=== PATIENT | female | born 2000 | race Caucasian/White ===

== ENCOUNTER 2021-09-17 10:41 | Inpatient (IN) | payer OTHER ==
[~2021-09-17] VITALS: Ht 162.6 cm; Wt 46.3 kg
[2021-09-17] MEDS ORDERED: BUSP5TA PO (10:49)
[2021-09-17 11:56] LABS: HEMATOCRIT 38.5 % (36.0-47.0); MEAN CORPUSCULAR HEMOGLOBIN 31.2 pg (27.0-33.0); MEAN CORPUSCULAR HGB CONC 33.8 g/dl (32.0-36.5); MEAN CORPUSCULAR VOLUME 92.3 fl (80.0-96.0); PLATELET COUNT, AUTOMATED 221 10^3/uL (150-450); RED BLOOD COUNT 4.17 10^6/uL (4.00-5.40); WHITE BLOOD COUNT 6.3 10^3/uL (4.0-10.0)
[2021-09-17 12:29] LABS: AMPHETAMINES LEVEL URINE NEGATIVE (NEGATIVE); BARBITURATES URINE NEGATIVE (NEGATIVE); BENZODIAZEPINES URINE NEGATIVE (NEGATIVE); CANNABINOIDS URINE NEGATIVE (NEGATIVE); COCAINE METABOLITE URINE NEGATIVE (NEGATIVE); METHADONE URINE NEGATIVE (NEGATIVE); OPIATES URINE NEGATIVE (NEGATIVE); PHENCYCLIDINE URINE NEGATIVE (NEGATIVE)
[2021-09-17 12:37] LABS: RSV AMPLIFICATION NEGATIVE (NEGATIVE)
[2021-09-17 12:44] LABS: HCG, SERUM QUALITATIVE NEGATIVE (NEGATIVE)
[2021-09-17 12:52] LABS: ACETAMINOPHEN LEVEL < 2.0 UG/ML (10.0-30.0); ALT/SGPT 14 U/L (12-78); BILIRUBIN,DIRECT < 0.1 MG/DL (0.0-0.2); BILIRUBIN,TOTAL 0.3 MG/DL (0.2-1.0); BLOOD UREA NITROGEN 10 MG/DL (7-18); CALCIUM LEVEL 8.5 MG/DL (8.5-10.1); CARBON DIOXIDE LEVEL 25 MEQ/L (21-32); CHLORIDE LEVEL 110 MEQ/L (98-107); CREATININE FOR GFR 0.63 MG/DL (0.55-1.30); ETHYL ALCOHOL (ETHANOL) < 0.003 % (0.000-0.010); GLUCOSE, FASTING 96 MG/DL (70-100); POTASSIUM SERUM 4.1 MEQ/L (3.5-5.1); SALICYLATE LEVEL < 1.7 MG/DL (5.0-30.0); SODIUM LEVEL 143 MEQ/L (136-145); THYROID STIMULATING HORMONE 0.713 uIU/ML (0.463-3.98); TOTAL PROTEIN 7.1 GM/DL (6.4-8.2)
[2021-09-17 13:32] LABS: LITHIUM LEVEL < 0.20 MEQ/L (0.60-1.20)
[2021-09-17] MEDS ORDERED: HOME MED LIST COMPLETE! XX SCH (14:55)
[2021-09-17] MEDS ORDERED: ACETAMINOPHEN TAB 650MG DOSE (2X325MG) PO PRN (15:45)
[2021-09-17] MEDS ORDERED: MAALOX 30 ML SUSP *UDC PO PRN (15:45)
[2021-09-17 16:07] VITALS: BP 84/52
[2021-09-18 06:33] VITALS: BP 109/57
[2021-09-18] MEDS: MULTIVITAMINS/MINERALS THERAP 1 TAB PO SCH (09:00)
[2021-09-18 18:19] VITALS: BP 93/54
[2021-09-18] MEDS: MIRTAZAPINE 7.5MG PER 1/2 TABLET PO SCH (21:24)
[2021-09-19 06:16] VITALS: BP 127/58
[2021-09-19] MEDS: MULTIVITAMINS/MINERALS THERAP 1 TAB PO SCH (09:37)
[2021-09-19] MEDS: VENLAFAXINE **XR** 37.5 MG CAPSULE PO SCH (12:59)
[2021-09-19 18:07] VITALS: BP 105/54
[2021-09-19] MEDS: MIRTAZAPINE 7.5MG PER 1/2 TABLET PO SCH (20:56)
[2021-09-20 06:11] VITALS: BP 85/56
[2021-09-20 07:50] VITALS: BP 115/65
[2021-09-20] MEDS: VENLAFAXINE **XR** 37.5 MG CAPSULE PO SCH (08:35)
[2021-09-20] MEDS: MULTIVITAMINS/MINERALS THERAP 1 TAB PO SCH (08:35)
[2021-09-20 18:22] VITALS: BP 113/57
[2021-09-20] MEDS: MIRTAZAPINE 7.5MG PER 1/2 TABLET PO SCH (21:39)
[2021-09-21 07:19] VITALS: BP 95/50
[2021-09-21] MEDS: MULTIVITAMINS/MINERALS THERAP 1 TAB PO SCH (08:31)
[2021-09-21] MEDS: VENLAFAXINE **XR** 37.5 MG CAPSULE PO SCH (08:31)
[2021-09-21 18:47] VITALS: BP 131/85
[2021-09-21] MEDS: MIRTAZAPINE 7.5MG PER 1/2 TABLET PO SCH (20:11)
[2021-09-22 06:24] VITALS: BP 101/59
[2021-09-22] MEDS: VENLAFAXINE **XR** 75MG CAPSULE PO SCH (08:49)
[2021-09-22] MEDS: MULTIVITAMINS/MINERALS THERAP 1 TAB PO SCH (08:49)
[2021-09-22 18:24] VITALS: BP 112/71
[2021-09-22] MEDS: MIRTAZAPINE 7.5MG PER 1/2 TABLET PO SCH (21:43)
[2021-09-23 06:19] VITALS: BP 95/62
[2021-09-23] MEDS: VENLAFAXINE **XR** 75MG CAPSULE PO SCH (08:36)
[2021-09-23] MEDS: MULTIVITAMINS/MINERALS THERAP 1 TAB PO SCH (08:36)
[2021-09-23 16:43] VITALS: BP 132/85
[2021-09-23 16:45] VITALS: BP 107/56
[2021-09-23] MEDS: MIRTAZAPINE 7.5MG PER 1/2 TABLET PO SCH (21:17)
[2021-09-24 06:12] VITALS: BP 137/71
[2021-09-24] MEDS: MULTIVITAMINS/MINERALS THERAP 1 TAB PO SCH (08:12)
[2021-09-24] MEDS: VENLAFAXINE **XR** 75MG CAPSULE PO SCH (08:12)
[2021-09-24 15:56] VITALS: BP 108/62
[2021-09-24] MEDS: MIRTAZAPINE 7.5MG PER 1/2 TABLET PO SCH (20:37)
[2021-09-25 06:07] VITALS: BP 141/68
[2021-09-25] MEDS: DOCUSATE SODIUM 100MG CAPSULE PO SCH ×2 (09:00→20:38)
[2021-09-25] MEDS: VENLAFAXINE **XR** 75MG CAPSULE PO SCH (09:19)
[2021-09-25] MEDS: MULTIVITAMINS/MINERALS THERAP 1 TAB PO SCH (09:19)
[2021-09-25 16:21] VITALS: BP 107/72
[2021-09-25] MEDS: MIRTAZAPINE 7.5MG PER 1/2 TABLET PO SCH (20:38)
[2021-09-25] MEDS: PRAZOSIN 1 MG CAP PO SCH (20:38)
[2021-09-26 06:36] VITALS: BP 128/59
[2021-09-26] MEDS: MULTIVITAMINS/MINERALS THERAP 1 TAB PO SCH (09:38)
[2021-09-26] MEDS: DOCUSATE SODIUM 100MG CAPSULE PO SCH ×2 (09:38→20:45)
[2021-09-26] MEDS: VENLAFAXINE **XR** 75MG CAPSULE PO SCH (09:38)
[2021-09-26] MEDS: busPIRone 10 MG TAB PO SCH ×2 (12:58→20:45)
[2021-09-26 19:13] VITALS: BP 122/79
[2021-09-26] MEDS: MIRTAZAPINE 7.5MG PER 1/2 TABLET PO SCH (20:45)
[2021-09-26] MEDS: PRAZOSIN 1 MG CAP PO SCH (20:45)
[2021-09-27 06:15] VITALS: BP 101/56
[2021-09-27] MEDS: MULTIVITAMINS/MINERALS THERAP 1 TAB PO SCH (08:47)
[2021-09-27] MEDS: DOCUSATE SODIUM 100MG CAPSULE PO SCH ×2 (08:47→21:00)
[2021-09-27] MEDS: busPIRone 10 MG TAB PO SCH ×3 (08:47→21:18)
[2021-09-27] MEDS: VENLAFAXINE **XR** 75MG CAPSULE PO SCH (08:47)
[2021-09-27 10:31] LABS: ALBUMIN 4.1 GM/DL (3.2-5.2); ALT/SGPT 21 U/L (12-78); BILIRUBIN,TOTAL 0.4 MG/DL (0.2-1.0); BLOOD UREA NITROGEN 15 MG/DL (7-18); CALCIUM LEVEL 9.8 MG/DL (8.5-10.1); CARBON DIOXIDE LEVEL 31 MEQ/L (21-32); CHLORIDE LEVEL 106 MEQ/L (98-107); CREATININE FOR GFR 0.78 MG/DL (0.55-1.30); GLUCOSE, FASTING 70 MG/DL (70-100); POTASSIUM SERUM 3.7 MEQ/L (3.5-5.1); SODIUM LEVEL 143 MEQ/L (136-145); TOTAL PROTEIN 7.3 GM/DL (6.4-8.2)
[2021-09-27] MEDS ORDERED: TUBERCULIN PPD 5 UNITS/0.1 ML ID ONE (12:00)
[2021-09-27] MEDS: MOM 30ML SUSPENSION UDC PO PRN (13:22)
[2021-09-27 17:44] VITALS: BP 100/61
[2021-09-27] MEDS: MIRTAZAPINE 15 MG TAB PO SCH (21:18)
[2021-09-28 06:09] VITALS: BP 101/55
[2021-09-28] MEDS: VENLAFAXINE **XR** 37.5 MG CAPSULE PO SCH (08:53)
[2021-09-28] MEDS: busPIRone 10 MG TAB PO SCH ×3 (08:54→20:48)
[2021-09-28] MEDS: MULTIVITAMINS/MINERALS THERAP 1 TAB PO SCH (08:54)
[2021-09-28] MEDS: DOCUSATE SODIUM 100MG CAPSULE PO SCH ×2 (08:56→20:47)
[2021-09-28 10:58] LABS: CHOLESTEROL RISK RATIO 2.253 (<5)
[2021-09-28 16:22] VITALS: BP 117/70
[2021-09-28] MEDS: MIRTAZAPINE 15 MG TAB PO SCH (20:48)
[2021-09-29 06:38] VITALS: BP 107/61
[2021-09-29] MEDS: DOCUSATE SODIUM 100MG CAPSULE PO SCH ×2 (08:25→20:34)
[2021-09-29] MEDS: VENLAFAXINE **XR** 37.5 MG CAPSULE PO SCH (08:27)
[2021-09-29] MEDS: MULTIVITAMINS/MINERALS THERAP 1 TAB PO SCH (08:27)
[2021-09-29] MEDS: busPIRone 10 MG TAB PO SCH ×3 (08:27→20:34)
[2021-09-29] MEDS ORDERED: PPD DOCUMENTATION ENTRY MISC XX ONE (12:00)
[2021-09-29 16:11] VITALS: BP 106/60
[2021-09-29] MEDS: MIRTAZAPINE 15 MG TAB PO SCH (20:34)
[2021-09-30 07:03] VITALS: BP 102/61
[2021-09-30] MEDS: VENLAFAXINE **XR** 37.5 MG CAPSULE PO SCH (08:24)
[2021-09-30] MEDS: MULTIVITAMINS/MINERALS THERAP 1 TAB PO SCH (08:24)
[2021-09-30] MEDS: busPIRone 10 MG TAB PO SCH ×3 (08:24→21:20)
[2021-09-30] MEDS: DOCUSATE SODIUM 100MG CAPSULE PO SCH ×2 (08:24→21:00)
[2021-09-30 18:20] VITALS: BP 127/80
[2021-09-30] MEDS: MIRTAZAPINE 15 MG TAB PO SCH (21:20)
[2021-10-01 06:52] VITALS: BP 123/71
[2021-10-01] MEDS: VENLAFAXINE **XR** 37.5 MG CAPSULE PO SCH (09:33)
[2021-10-01] MEDS: MULTIVITAMINS/MINERALS THERAP 1 TAB PO SCH (09:33)
[2021-10-01] MEDS: DOCUSATE SODIUM 100MG CAPSULE PO SCH (09:33)
[2021-10-01] MEDS: busPIRone 10 MG TAB PO SCH ×3 (09:34→22:02)
[2021-10-01 17:50] VITALS: BP 122/78
[2021-10-01] MEDS: MIRTAZAPINE 15 MG TAB PO SCH (22:02)
[2021-10-02 07:24] VITALS: BP 114/68
[2021-10-02] MEDS: MULTIVITAMINS/MINERALS THERAP 1 TAB PO SCH (09:52)
[2021-10-02] MEDS: busPIRone 10 MG TAB PO SCH ×3 (09:52→20:43)
[2021-10-02] MEDS: VENLAFAXINE **XR** 75MG CAPSULE PO SCH (09:53)
[2021-10-02 18:47] VITALS: BP 110/60
[2021-10-02] MEDS: PRAZOSIN 1 MG CAP PO SCH (20:43)
[2021-10-02] MEDS: traZODone 50 MG TAB PO PRN (20:43)
[2021-10-02] MEDS: MIRTAZAPINE 15 MG TAB PO SCH (20:43)
[2021-10-03 06:32] VITALS: BP 95/53
[2021-10-03 08:04] VITALS: BP 102/68
[2021-10-03] MEDS: MULTIVITAMINS/MINERALS THERAP 1 TAB PO SCH (09:16)
[2021-10-03] MEDS: VENLAFAXINE **XR** 75MG CAPSULE PO SCH (09:16)
[2021-10-03] MEDS: busPIRone 10 MG TAB PO SCH ×3 (09:16→21:53)
[2021-10-03 18:04] VITALS: BP 101/66
[2021-10-03] MEDS: PRAZOSIN 1 MG CAP PO SCH (21:53)
[2021-10-03] MEDS: MIRTAZAPINE 15 MG TAB PO SCH (21:53)
[2021-10-04 06:24] VITALS: BP 96/51
[2021-10-04] MEDS: VENLAFAXINE **XR** 75MG CAPSULE PO SCH (08:57)
[2021-10-04] MEDS: busPIRone 10 MG TAB PO SCH ×3 (08:57→21:25)
[2021-10-04] MEDS: MULTIVITAMINS/MINERALS THERAP 1 TAB PO SCH (08:57)
[2021-10-04 11:18] VITALS: BP 96/51
[2021-10-04] MEDS: hydrOXYzine 50 MG TAB PO SCH ×2 (12:25→18:06)
[2021-10-04 19:22] VITALS: BP 137/72
[2021-10-04] MEDS: PRAZOSIN 1 MG CAP PO SCH (21:25)
[2021-10-04] MEDS: MIRTAZAPINE 15 MG TAB PO SCH (21:25)
[2021-10-05] MEDS: hydrOXYzine 50 MG TAB PO SCH ×4 (05:29→18:20)
[2021-10-05 07:06] VITALS: BP 105/64
[2021-10-05] MEDS: MULTIVITAMINS/MINERALS THERAP 1 TAB PO SCH (09:16)
[2021-10-05] MEDS: VENLAFAXINE **XR** 75MG CAPSULE PO SCH (09:16)
[2021-10-05] MEDS: busPIRone 10 MG TAB PO SCH ×3 (09:16→21:31)
[2021-10-05 12:30] VITALS: BP 121/80
[2021-10-05 18:48] VITALS: BP 122/68
[2021-10-05] MEDS: PRAZOSIN 1 MG CAP PO SCH (21:31)
[2021-10-05] MEDS: MIRTAZAPINE 15 MG TAB PO SCH (21:31)
[2021-10-06] MEDS: hydrOXYzine 50 MG TAB PO SCH ×4 (00:16→17:48)
[2021-10-06 06:44] VITALS: BP 105/69
[2021-10-06 08:59] LABS: HEMATOCRIT 36.4 % (36.0-47.0); HEMOGLOBIN 12.7 g/dl (12.0-15.5); MEAN CORPUSCULAR HEMOGLOBIN 31.2 pg (27.0-33.0); MEAN CORPUSCULAR HGB CONC 34.9 g/dl (32.0-36.5); MEAN CORPUSCULAR VOLUME 89.4 fl (80.0-96.0); PLATELET COUNT, AUTOMATED 195 10^3/uL (150-450); RED BLOOD COUNT 4.07 10^6/uL (4.00-5.40); WHITE BLOOD COUNT 6.8 10^3/uL (4.0-10.0)
[2021-10-06 09:27] LABS: BLOOD UREA NITROGEN 9 MG/DL (7-18); CALCIUM LEVEL 9.1 MG/DL (8.5-10.1); CARBON DIOXIDE LEVEL 30 MEQ/L (21-32); CHLORIDE LEVEL 106 MEQ/L (98-107); CREATININE FOR GFR 0.69 MG/DL (0.55-1.30); GLUCOSE, FASTING 112 MG/DL (70-100); POTASSIUM SERUM 3.8 MEQ/L (3.5-5.1); SODIUM LEVEL 140 MEQ/L (136-145)
[2021-10-06] MEDS: busPIRone 10 MG TAB PO SCH ×3 (09:27→21:47)
[2021-10-06] MEDS: MULTIVITAMINS/MINERALS THERAP 1 TAB PO SCH (09:27)
[2021-10-06] MEDS: VENLAFAXINE **XR** 75MG CAPSULE PO SCH (09:27)
[2021-10-06 18:49] VITALS: BP 133/82
[2021-10-06] MEDS: MIRTAZAPINE 15 MG TAB PO SCH (21:47)
[2021-10-06] MEDS: PRAZOSIN 1 MG CAP PO SCH (21:49)
[2021-10-07] MEDS: hydrOXYzine 50 MG TAB PO SCH ×4 (00:04→18:02)
[2021-10-07 06:35] VITALS: BP 93/52
[2021-10-07] MEDS: VENLAFAXINE **XR** 75MG CAPSULE PO SCH (09:30)
[2021-10-07] MEDS: busPIRone 10 MG TAB PO SCH ×3 (09:30→21:47)
[2021-10-07] MEDS: MULTIVITAMINS/MINERALS THERAP 1 TAB PO SCH (09:30)
[2021-10-07 09:52] LABS: VITAMIN B12 LEVEL 501 PG/ML (247-911)
[2021-10-07 09:53] LABS: FOLATE 19.2 NG/ML (>5.4)
[2021-10-07 16:23] VITALS: BP 114/68
[2021-10-07] MEDS: MIRTAZAPINE 15 MG TAB PO SCH (21:47)
[2021-10-07] MEDS: PRAZOSIN 1 MG CAP PO SCH (21:49)
[2021-10-08] MEDS: hydrOXYzine 50 MG TAB PO SCH ×4 (05:56→18:12)
[2021-10-08 06:36] VITALS: BP 96/57
[2021-10-08] MEDS: VENLAFAXINE **XR** 75MG CAPSULE PO SCH (09:47)
[2021-10-08] MEDS: busPIRone 10 MG TAB PO SCH ×3 (09:48→21:23)
[2021-10-08] MEDS: MULTIVITAMINS/MINERALS THERAP 1 TAB PO SCH (09:48)
[2021-10-08 16:30] VITALS: BP 105/61
[2021-10-08] MEDS: MIRTAZAPINE 15 MG TAB PO SCH (21:23)
[2021-10-08] MEDS: PRAZOSIN 1 MG CAP PO SCH (21:24)
[2021-10-09] MEDS: hydrOXYzine 50 MG TAB PO SCH ×5 (06:19→23:59)
[2021-10-09 06:20] VITALS: BP 105/51
[2021-10-09] MEDS: VENLAFAXINE **XR** 75MG CAPSULE PO SCH (09:28)
[2021-10-09] MEDS: MULTIVITAMINS/MINERALS THERAP 1 TAB PO SCH (09:28)
[2021-10-09] MEDS: busPIRone 10 MG TAB PO SCH ×3 (09:28→21:17)
[2021-10-09 17:07] VITALS: BP 118/72
[2021-10-09] MEDS: PRAZOSIN 1 MG CAP PO SCH (21:15)
[2021-10-09] MEDS: MIRTAZAPINE 15 MG TAB PO SCH (21:17)
[2021-10-10] MEDS: hydrOXYzine 50 MG TAB PO SCH (05:40)
[2021-10-10 06:57] VITALS: BP 129/74
[2021-10-10] MEDS: MULTIVITAMINS/MINERALS THERAP 1 TAB PO SCH (08:39)
[2021-10-10] MEDS: VENLAFAXINE **XR** 75MG CAPSULE PO SCH (08:39)
[2021-10-10] MEDS: busPIRone 10 MG TAB PO SCH ×3 (08:39→21:06)
[2021-10-10 19:01] VITALS: BP 120/70
[2021-10-10] MEDS: MIRTAZAPINE 15 MG TAB PO SCH (21:06)
[2021-10-10] MEDS: PRAZOSIN 1 MG CAP PO SCH (21:06)
[2021-10-11 06:52] VITALS: BP 91/52
[2021-10-11] MEDS: busPIRone 10 MG TAB PO SCH ×3 (08:27→21:10)
[2021-10-11] MEDS: VENLAFAXINE **XR** 75MG CAPSULE PO SCH (08:27)
[2021-10-11] MEDS: MULTIVITAMINS/MINERALS THERAP 1 TAB PO SCH (08:27)
[2021-10-11 16:32] VITALS: BP 118/79
[2021-10-11] MEDS: MIRTAZAPINE 15 MG TAB PO SCH (21:10)
[2021-10-11] MEDS: PRAZOSIN 1 MG CAP PO SCH (21:10)
[2021-10-12 06:37] VITALS: BP 101/63
[2021-10-12] MEDS: MULTIVITAMINS/MINERALS THERAP 1 TAB PO SCH (08:37)
[2021-10-12] MEDS: busPIRone 10 MG TAB PO SCH ×3 (08:37→20:27)
[2021-10-12] MEDS: VENLAFAXINE **XR** 75MG CAPSULE PO SCH (08:37)
[2021-10-12 16:25] VITALS: BP 104/63
[2021-10-12] MEDS: MIRTAZAPINE 15 MG TAB PO SCH (20:27)
[2021-10-12] MEDS: PRAZOSIN 1 MG CAP PO SCH (20:27)
[2021-10-13 06:44] VITALS: BP 109/66
[2021-10-13] MEDS: MULTIVITAMINS/MINERALS THERAP 1 TAB PO SCH (08:40)
[2021-10-13] MEDS: busPIRone 10 MG TAB PO SCH ×3 (08:40→21:28)
[2021-10-13] MEDS: VENLAFAXINE **XR** 75MG CAPSULE PO SCH (08:40)
[2021-10-13 18:22] VITALS: BP 113/69
[2021-10-13] MEDS: PRAZOSIN 1 MG CAP PO SCH (21:27)
[2021-10-13] MEDS: MIRTAZAPINE 15 MG TAB PO SCH (21:28)
[2021-10-14 07:04] VITALS: BP 84/51
[2021-10-14] MEDS: VENLAFAXINE **XR** 75MG CAPSULE PO SCH (09:22)
[2021-10-14] MEDS: busPIRone 10 MG TAB PO SCH ×3 (09:22→21:48)
[2021-10-14] MEDS: MULTIVITAMINS/MINERALS THERAP 1 TAB PO SCH (09:22)
[2021-10-14] MEDS ORDERED: DOCUSATE SODIUM 100MG CAPSULE PO PRN (12:20)
[2021-10-14 17:55] VITALS: BP 113/71
[2021-10-14] MEDS: MIRTAZAPINE 15 MG TAB PO SCH (21:48)
[2021-10-14] MEDS: PRAZOSIN 1 MG CAP PO SCH (21:48)
[2021-10-15 07:09] VITALS: BP 106/65
[2021-10-15] MEDS: VENLAFAXINE **XR** 75MG CAPSULE PO SCH (08:53)
[2021-10-15] MEDS: MULTIVITAMINS/MINERALS THERAP 1 TAB PO SCH (08:53)
[2021-10-15] MEDS: busPIRone 10 MG TAB PO SCH ×3 (08:53→21:24)
[2021-10-15 10:56] LABS: ALBUMIN 4.1 GM/DL (3.2-5.2); ALT/SGPT 32 U/L (12-78); BILIRUBIN,TOTAL 0.3 MG/DL (0.2-1.0); BLOOD UREA NITROGEN 9 MG/DL (7-18); CALCIUM LEVEL 9.5 MG/DL (8.5-10.1); CARBON DIOXIDE LEVEL 29 MEQ/L (21-32); CHLORIDE LEVEL 107 MEQ/L (98-107); CREATININE FOR GFR 0.69 MG/DL (0.55-1.30); GLUCOSE, FASTING 75 MG/DL (70-100); SODIUM LEVEL 140 MEQ/L (136-145); TOTAL PROTEIN 6.7 GM/DL (6.4-8.2)
[2021-10-15 18:00] VITALS: BP 140/80
[2021-10-15] MEDS: MIRTAZAPINE 15 MG TAB PO SCH (21:24)
[2021-10-15] MEDS: traZODone 50 MG TAB PO PRN (21:24)
[2021-10-15] MEDS: PRAZOSIN 1 MG CAP PO SCH (21:24)
[2021-10-16 06:00] VITALS: BP 109/58
[2021-10-16] MEDS: busPIRone 10 MG TAB PO SCH ×3 (09:24→21:21)
[2021-10-16] MEDS: VENLAFAXINE **XR** 75MG CAPSULE PO SCH (09:24)
[2021-10-16] MEDS: MULTIVITAMINS/MINERALS THERAP 1 TAB PO SCH (09:24)
[2021-10-16 18:11] VITALS: BP 114/73
[2021-10-16] MEDS: traZODone 50 MG TAB PO PRN (21:21)
[2021-10-16] MEDS: MIRTAZAPINE 15 MG TAB PO SCH (21:21)
[2021-10-16] MEDS: PRAZOSIN 1 MG CAP PO SCH (21:22)
[2021-10-17 06:27] VITALS: BP 105/59
[2021-10-17] MEDS: VENLAFAXINE **XR** 75MG CAPSULE PO SCH (09:33)
[2021-10-17] MEDS: busPIRone 10 MG TAB PO SCH ×3 (09:34→21:03)
[2021-10-17] MEDS: MULTIVITAMINS/MINERALS THERAP 1 TAB PO SCH (09:34)
[2021-10-17] MEDS: MOM 30ML SUSPENSION UDC PO PRN (09:34)
[2021-10-17 18:59] VITALS: BP 110/71
[2021-10-17] MEDS: MIRTAZAPINE 15 MG TAB PO SCH (21:03)
[2021-10-17] MEDS: traZODone 50 MG TAB PO PRN (21:03)
[2021-10-17] MEDS: PRAZOSIN 1 MG CAP PO SCH (21:03)
[2021-10-18 06:27] VITALS: BP 104/55
[2021-10-18] MEDS: MULTIVITAMINS/MINERALS THERAP 1 TAB PO SCH (09:06)
[2021-10-18] MEDS: busPIRone 10 MG TAB PO SCH ×3 (09:06→21:30)
[2021-10-18] MEDS: VENLAFAXINE **XR** 75MG CAPSULE PO SCH (09:07)
[2021-10-18 19:04] VITALS: BP 112/63
[2021-10-18] MEDS: MIRTAZAPINE 15 MG TAB PO SCH (21:30)
[2021-10-18] MEDS: PRAZOSIN 1 MG CAP PO SCH (21:30)
[2021-10-18] MEDS: traZODone 50 MG TAB PO PRN (21:30)
[2021-10-19 06:50] VITALS: BP 100/59
[2021-10-19] MEDS: MULTIVITAMINS/MINERALS THERAP 1 TAB PO SCH (09:39)
[2021-10-19] MEDS: VENLAFAXINE **XR** 75MG CAPSULE PO SCH (09:39)
[2021-10-19] MEDS: busPIRone 10 MG TAB PO SCH ×3 (09:39→22:50)
[2021-10-19 19:52] VITALS: BP 117/66
[2021-10-19] MEDS: PRAZOSIN 1 MG CAP PO SCH (22:49)
[2021-10-19] MEDS: MIRTAZAPINE 15 MG TAB PO SCH (22:49)
[2021-10-19] MEDS: traZODone 50 MG TAB PO PRN (22:50)
[2021-10-20 06:56] VITALS: BP 96/51
[2021-10-20] MEDS: MULTIVITAMINS/MINERALS THERAP 1 TAB PO SCH (09:17)
[2021-10-20] MEDS: VENLAFAXINE **XR** 75MG CAPSULE PO SCH (09:18)
[2021-10-20] MEDS: busPIRone 10 MG TAB PO SCH ×3 (09:18→21:57)
[2021-10-20] MEDS ORDERED: LORazepam 1 MG TAB PO PRN (19:55)
[2021-10-20 20:29] VITALS: BP 102/63
[2021-10-20] MEDS: MIRTAZAPINE 15 MG TAB PO SCH (21:57)
[2021-10-20] MEDS: traZODone 50 MG TAB PO PRN (21:57)
[2021-10-20] MEDS: PRAZOSIN 1 MG CAP PO SCH (21:58)
[2021-10-21 06:00] VITALS: BP 98/57
[2021-10-21] MEDS: MULTIVITAMINS/MINERALS THERAP 1 TAB PO SCH (08:59)
[2021-10-21] MEDS: VENLAFAXINE **XR** 75MG CAPSULE PO SCH (08:59)
[2021-10-21] MEDS: busPIRone 10 MG TAB PO SCH ×3 (08:59→22:10)
[2021-10-21] MEDS: GABAPENTIN 100 MG CAP PO SCH ×3 (11:18→22:10)
[2021-10-21 16:25] VITALS: BP 107/69
[2021-10-21] MEDS: traZODone 50 MG TAB PO PRN (22:09)
[2021-10-21] MEDS: MIRTAZAPINE 15 MG TAB PO SCH (22:10)
[2021-10-21] MEDS: PRAZOSIN 1 MG CAP PO SCH (22:11)
[2021-10-22 06:15] VITALS: BP 100/61
[2021-10-22] MEDS: busPIRone 10 MG TAB PO SCH ×3 (08:31→21:57)
[2021-10-22] MEDS: MULTIVITAMINS/MINERALS THERAP 1 TAB PO SCH (08:31)
[2021-10-22] MEDS: VENLAFAXINE **XR** 75MG CAPSULE PO SCH (08:31)
[2021-10-22] MEDS: GABAPENTIN 100 MG CAP PO SCH ×3 (08:32→21:57)
[2021-10-22 16:17] VITALS: BP 100/60
[2021-10-22] MEDS: traZODone 25MG PER 1/2 TABLET PO PRN (21:56)
[2021-10-22] MEDS: MIRTAZAPINE 15 MG TAB PO SCH (21:56)
[2021-10-22] MEDS: PRAZOSIN 1 MG CAP PO SCH (21:58)
[2021-10-23 06:29] VITALS: BP 100/61
[2021-10-23] MEDS: busPIRone 10 MG TAB PO SCH ×3 (08:11→21:40)
[2021-10-23] MEDS: VENLAFAXINE **XR** 75MG CAPSULE PO SCH (08:11)
[2021-10-23] MEDS: GABAPENTIN 100 MG CAP PO SCH ×3 (08:11→21:41)
[2021-10-23] MEDS: MULTIVITAMINS/MINERALS THERAP 1 TAB PO SCH (08:11)
[2021-10-23 12:46] LABS: ALBUMIN 4.1 GM/DL (3.2-5.2); ALT/SGPT 24 U/L (12-78); BILIRUBIN,TOTAL 0.4 MG/DL (0.2-1.0); BLOOD UREA NITROGEN 12 MG/DL (7-18); CARBON DIOXIDE LEVEL 29 MEQ/L (21-32); CHLORIDE LEVEL 109 MEQ/L (98-107); CREATININE FOR GFR 0.68 MG/DL (0.55-1.30); GLUCOSE, FASTING 88 MG/DL (70-100); SODIUM LEVEL 141 MEQ/L (136-145); TOTAL PROTEIN 7.1 GM/DL (6.4-8.2)
[2021-10-23 16:40] VITALS: BP 107/65
[2021-10-23] MEDS: PRAZOSIN 1 MG CAP PO SCH (21:00)
[2021-10-23] MEDS: traZODone 25MG PER 1/2 TABLET PO PRN (21:41)
[2021-10-23] MEDS: MIRTAZAPINE 15 MG TAB PO SCH (21:41)
[2021-10-23 21:49] VITALS: BP 96/72
[2021-10-24 06:00] VITALS: BP 99/58
[2021-10-24] MEDS: VENLAFAXINE **XR** 75MG CAPSULE PO SCH (09:28)
[2021-10-24] MEDS: MULTIVITAMINS/MINERALS THERAP 1 TAB PO SCH (09:28)
[2021-10-24] MEDS: busPIRone 10 MG TAB PO SCH ×3 (09:28→22:06)
[2021-10-24] MEDS: GABAPENTIN 100 MG CAP PO SCH ×3 (09:28→22:06)
[2021-10-24] MEDS ORDERED: MAGIC MOUTHWASH SUSPENSION BTL SS PRN (10:35)
[2021-10-24 18:25] VITALS: BP 98/68
[2021-10-24] MEDS: traZODone 25MG PER 1/2 TABLET PO PRN (22:06)
[2021-10-24] MEDS: MIRTAZAPINE 15 MG TAB PO SCH (22:06)
[2021-10-24] MEDS: PRAZOSIN 1 MG CAP PO SCH (22:07)
[2021-10-25 06:00] VITALS: BP 94/56
[2021-10-25] MEDS: busPIRone 10 MG TAB PO SCH ×3 (09:03→20:40)
[2021-10-25] MEDS: MULTIVITAMINS/MINERALS THERAP 1 TAB PO SCH (09:03)
[2021-10-25] MEDS: GABAPENTIN 100 MG CAP PO SCH ×3 (09:03→20:40)
[2021-10-25] MEDS: VENLAFAXINE **XR** 75MG CAPSULE PO SCH (09:03)
[2021-10-25 16:22] VITALS: BP 102/60
[2021-10-25] MEDS: MIRTAZAPINE 15 MG TAB PO SCH (20:40)
[2021-10-25] MEDS: traZODone 25MG PER 1/2 TABLET PO PRN (20:40)
[2021-10-25] MEDS: PRAZOSIN 1 MG CAP PO SCH (20:41)
[2021-10-26 06:21] VITALS: BP 98/60
[2021-10-26] MEDS: VENLAFAXINE **XR** 75MG CAPSULE PO SCH (09:15)
[2021-10-26] MEDS: busPIRone 10 MG TAB PO SCH ×3 (09:15→21:35)
[2021-10-26] MEDS: GABAPENTIN 100 MG CAP PO SCH ×3 (09:15→21:35)
[2021-10-26] MEDS: MULTIVITAMINS/MINERALS THERAP 1 TAB PO SCH (09:15)
[2021-10-26 16:12] VITALS: BP 112/60
[2021-10-26] MEDS: MIRTAZAPINE 15 MG TAB PO SCH (21:35)
[2021-10-26] MEDS: traZODone 25MG PER 1/2 TABLET PO PRN (21:35)
[2021-10-26] MEDS: PRAZOSIN 1 MG CAP PO SCH (21:38)
[2021-10-27 06:29] VITALS: BP 96/60
[2021-10-27] MEDS: VENLAFAXINE **XR** 75MG CAPSULE PO SCH (08:50)
[2021-10-27] MEDS: busPIRone 10 MG TAB PO SCH ×3 (08:50→21:42)
[2021-10-27] MEDS: MULTIVITAMINS/MINERALS THERAP 1 TAB PO SCH (08:50)
[2021-10-27] MEDS: GABAPENTIN 100 MG CAP PO SCH ×3 (08:50→21:44)
[2021-10-27 16:06] VITALS: BP 106/58
[2021-10-27] MEDS: MIRTAZAPINE 15 MG TAB PO SCH (21:45)
[2021-10-27] MEDS: PRAZOSIN 1 MG CAP PO SCH (21:45)
[2021-10-27] MEDS: traZODone 25MG PER 1/2 TABLET PO PRN (21:45)
[2021-10-28 06:31] VITALS: BP 94/68
[2021-10-28] MEDS: GABAPENTIN 100 MG CAP PO SCH ×3 (08:49→21:11)
[2021-10-28] MEDS: MULTIVITAMINS/MINERALS THERAP 1 TAB PO SCH (08:49)
[2021-10-28] MEDS: busPIRone 10 MG TAB PO SCH ×3 (08:49→21:12)
[2021-10-28] MEDS: VENLAFAXINE **XR** 75MG CAPSULE PO SCH (08:49)
[2021-10-28 17:41] VITALS: BP 130/76
[2021-10-28] MEDS: traZODone 25MG PER 1/2 TABLET PO PRN (21:11)
[2021-10-28] MEDS: PRAZOSIN 1 MG CAP PO SCH (21:11)
[2021-10-28] MEDS: MIRTAZAPINE 15 MG TAB PO SCH (21:12)
[2021-10-28 23:30] VITALS: BP 106/62
[2021-10-29 06:00] VITALS: BP 101/62
[2021-10-29] MEDS: GABAPENTIN 100 MG CAP PO SCH ×3 (09:35→21:23)
[2021-10-29] MEDS: VENLAFAXINE **XR** 75MG CAPSULE PO SCH (09:35)
[2021-10-29] MEDS: MULTIVITAMINS/MINERALS THERAP 1 TAB PO SCH (09:35)
[2021-10-29] MEDS: busPIRone 10 MG TAB PO SCH ×3 (09:35→21:23)
[2021-10-29 18:45] VITALS: BP 124/70
[2021-10-29] MEDS: PRAZOSIN 1 MG CAP PO SCH (21:23)
[2021-10-29] MEDS: traZODone 25MG PER 1/2 TABLET PO PRN (21:23)
[2021-10-29] MEDS: MIRTAZAPINE 15 MG TAB PO SCH (21:23)
[2021-10-30 06:37] VITALS: BP 102/58
[2021-10-30] MEDS: MULTIVITAMINS/MINERALS THERAP 1 TAB PO SCH (09:39)
[2021-10-30] MEDS: busPIRone 10 MG TAB PO SCH ×3 (09:40→21:48)
[2021-10-30] MEDS: GABAPENTIN 100 MG CAP PO SCH ×3 (09:40→21:48)
[2021-10-30] MEDS: VENLAFAXINE **XR** 75MG CAPSULE PO SCH (09:41)
[2021-10-30 16:47] VITALS: BP 100/62
[2021-10-30] MEDS: PRAZOSIN 1 MG CAP PO SCH (21:00)
[2021-10-30] MEDS: traZODone 25MG PER 1/2 TABLET PO PRN (21:48)
[2021-10-30] MEDS: MIRTAZAPINE 15 MG TAB PO SCH (21:48)
[2021-10-31 06:50] VITALS: BP 102/70
[2021-10-31] MEDS: MULTIVITAMINS/MINERALS THERAP 1 TAB PO SCH (10:22)
[2021-10-31] MEDS: VENLAFAXINE **XR** 75MG CAPSULE PO SCH (10:22)
[2021-10-31] MEDS: GABAPENTIN 100 MG CAP PO SCH ×3 (10:22→21:23)
[2021-10-31] MEDS: busPIRone 10 MG TAB PO SCH ×3 (10:22→21:23)
[2021-10-31 18:00] VITALS: BP 108/86
[2021-10-31] MEDS: PRAZOSIN 1 MG CAP PO SCH (21:00)
[2021-10-31] MEDS: MIRTAZAPINE 15 MG TAB PO SCH (21:23)
[2021-10-31] MEDS: traZODone 25MG PER 1/2 TABLET PO PRN (21:23)
[2021-11-01 06:39] VITALS: BP 94/59
[2021-11-01] MEDS: MULTIVITAMINS/MINERALS THERAP 1 TAB PO SCH (09:12)
[2021-11-01] MEDS: busPIRone 10 MG TAB PO SCH ×3 (09:12→20:56)
[2021-11-01] MEDS: VENLAFAXINE **XR** 75MG CAPSULE PO SCH (09:12)
[2021-11-01] MEDS: GABAPENTIN 100 MG CAP PO SCH ×3 (09:12→20:56)
[2021-11-01 18:52] VITALS: BP 126/78
[2021-11-01] MEDS: PRAZOSIN 1 MG CAP PO SCH (20:55)
[2021-11-01] MEDS: traZODone 25MG PER 1/2 TABLET PO PRN (20:55)
[2021-11-01] MEDS: MIRTAZAPINE 15 MG TAB PO SCH (20:56)
[2021-11-02 06:59] VITALS: BP 102/64
[2021-11-02] MEDS: busPIRone 10 MG TAB PO SCH ×3 (08:54→21:02)
[2021-11-02] MEDS: MULTIVITAMINS/MINERALS THERAP 1 TAB PO SCH (08:54)
[2021-11-02] MEDS: GABAPENTIN 100 MG CAP PO SCH ×3 (08:54→21:02)
[2021-11-02] MEDS: VENLAFAXINE **XR** 75MG CAPSULE PO SCH (08:54)
[2021-11-02] MEDS: MIRTAZAPINE 15 MG TAB PO SCH (21:01)
[2021-11-02] MEDS: PRAZOSIN 1 MG CAP PO SCH (21:01)
[2021-11-02] MEDS: traZODone 25MG PER 1/2 TABLET PO PRN (21:02)
[2021-11-03 06:00] VITALS: BP 128/78
[2021-11-03] MEDS: busPIRone 10 MG TAB PO SCH ×3 (08:19→21:16)
[2021-11-03] MEDS: VENLAFAXINE **XR** 75MG CAPSULE PO SCH (08:19)
[2021-11-03] MEDS: MULTIVITAMINS/MINERALS THERAP 1 TAB PO SCH (08:19)
[2021-11-03] MEDS: GABAPENTIN 100 MG CAP PO SCH ×3 (08:19→21:16)
[2021-11-03 18:56] VITALS: BP 130/70
[2021-11-03] MEDS: PRAZOSIN 1 MG CAP PO SCH (21:16)
[2021-11-03] MEDS: traZODone 25MG PER 1/2 TABLET PO PRN (21:16)
[2021-11-03] MEDS: MIRTAZAPINE 15 MG TAB PO SCH (21:16)
[2021-11-04 06:51] VITALS: BP 110/69
[2021-11-04] MEDS: GABAPENTIN 100 MG CAP PO SCH ×3 (08:47→21:08)
[2021-11-04] MEDS: VENLAFAXINE **XR** 75MG CAPSULE PO SCH (08:47)
[2021-11-04] MEDS: MULTIVITAMINS/MINERALS THERAP 1 TAB PO SCH (08:47)
[2021-11-04] MEDS: busPIRone 10 MG TAB PO SCH ×3 (08:47→21:08)
[2021-11-04 16:28] VITALS: BP 103/68
[2021-11-04] MEDS: traZODone 25MG PER 1/2 TABLET PO PRN (21:08)
[2021-11-04] MEDS: MIRTAZAPINE 15 MG TAB PO SCH (21:08)
[2021-11-04] MEDS: PRAZOSIN 1 MG CAP PO SCH (21:18)
[2021-11-05 06:37] VITALS: BP 98/50
[2021-11-05 07:50] LABS: BASO # 0.1 10^3/uL (0.0-0.2); BASO % 1.3 % (0.0-1.0); EOS # 0.1 10^3/uL (0.0-0.5); EOS % 3.4 % (0.0-3.0); HEMATOCRIT 33.9 % (36.0-47.0); HEMOGLOBIN 11.5 g/dl (12.0-15.5); LYMPH % 51.9 % (24.0-44.0); MEAN CORPUSCULAR HEMOGLOBIN 30.7 pg (27.0-33.0); MEAN CORPUSCULAR HGB CONC 33.9 g/dl (32.0-36.5); MEAN CORPUSCULAR VOLUME 90.6 fl (80.0-96.0); MONO # 0.3 10^3/uL (0.0-0.8); MONO % 7.8 % (2.0-8.0); NEUTROPHILS # 1.4 10^3/uL (1.5-8.5); NEUTROPHILS % 35.3 % (36.0-66.0); PLATELET COUNT, AUTOMATED 174 10^3/uL (150-450); RED BLOOD COUNT 3.74 10^6/uL (4.00-5.40); WHITE BLOOD COUNT 3.9 10^3/uL (4.0-10.0)
[2021-11-05 08:19] LABS: ALBUMIN 3.6 GM/DL (3.2-5.2); ALT/SGPT 28 U/L (12-78); BILIRUBIN,TOTAL 0.3 MG/DL (0.2-1.0); BLOOD UREA NITROGEN 8 MG/DL (7-18); CARBON DIOXIDE LEVEL 30 MEQ/L (21-32); CHLORIDE LEVEL 109 MEQ/L (98-107); GLUCOSE, FASTING 75 MG/DL (70-100); POTASSIUM SERUM 3.7 MEQ/L (3.5-5.1); SODIUM LEVEL 141 MEQ/L (136-145); TOTAL PROTEIN 6.2 GM/DL (6.4-8.2)
[2021-11-05] MEDS: GABAPENTIN 100 MG CAP PO SCH ×3 (08:51→21:23)
[2021-11-05] MEDS: busPIRone 10 MG TAB PO SCH ×3 (08:51→21:23)
[2021-11-05] MEDS: MULTIVITAMINS/MINERALS THERAP 1 TAB PO SCH (08:51)
[2021-11-05] MEDS: VENLAFAXINE **XR** 75MG CAPSULE PO SCH (08:51)
[2021-11-05 16:45] VITALS: BP 102/60
[2021-11-05 21:18] VITALS: BP 110/62
[2021-11-05] MEDS: traZODone 25MG PER 1/2 TABLET PO PRN (21:23)
[2021-11-05] MEDS: PRAZOSIN 1 MG CAP PO SCH (21:23)
[2021-11-05] MEDS: MIRTAZAPINE 15 MG TAB PO SCH (21:23)
[2021-11-06 07:01] VITALS: BP 106/63
[2021-11-06] MEDS: VENLAFAXINE **XR** 75MG CAPSULE PO SCH (10:08)
[2021-11-06] MEDS: MULTIVITAMINS/MINERALS THERAP 1 TAB PO SCH (10:08)
[2021-11-06] MEDS: GABAPENTIN 100 MG CAP PO SCH ×3 (10:08→21:27)
[2021-11-06] MEDS: busPIRone 10 MG TAB PO SCH ×3 (10:08→21:27)
[2021-11-06 19:06] VITALS: BP 105/58
[2021-11-06] MEDS: traZODone 25MG PER 1/2 TABLET PO PRN (21:27)
[2021-11-06] MEDS: MIRTAZAPINE 15 MG TAB PO SCH (21:28)
[2021-11-06 21:32] VITALS: BP 104/70
[2021-11-06] MEDS: PRAZOSIN 1 MG CAP PO SCH (21:32)
[2021-11-07 07:08] VITALS: BP 101/56
[2021-11-07] MEDS ORDERED: MIRT-10 PO (09:21)
[2021-11-07] MEDS ORDERED: GABA-1171 PO (09:21)
[2021-11-07] MEDS ORDERED: VENL75CA47 PO (09:21)
[2021-11-07] MEDS ORDERED: MINI1CAP PO (09:21)
[2021-11-07] MEDS: MULTIVITAMINS/MINERALS THERAP 1 TAB PO SCH (09:31)
[2021-11-07] MEDS: GABAPENTIN 100 MG CAP PO SCH (09:31)
[2021-11-07] MEDS: VENLAFAXINE **XR** 75MG CAPSULE PO SCH (09:31)
[2021-11-07] MEDS: busPIRone 10 MG TAB PO SCH (09:31)
== END 2021-11-07 13:50 | DRG 751 ==
LOC: M ED 10:41 → M ED INP 15:44 → M PSY 16:43
PROVIDERS: ADMIT Student in an Organized Health Care Education/Training Program; ATTEND Student in an Organized Health Care Education/Training Program
DX: F33.2 Major depressive disorder, recurrent severe without psychotic features (principal); F50.01 Anorexia nervosa, restricting type; F43.10 Post-traumatic stress disorder, unspecified; Z81.3 Family history of other psychoactive substance abuse and dependence; R53.1 Weakness; Z81.8 Family history of other mental and behavioral disorders; F60.89 Other specific personality disorders; Z68.1 Body mass index [BMI] 19.9 or less, adult; Z91.52 Personal history of nonsuicidal self-harm; T14.91XA Suicide attempt, initial encounter; X83.8XXA Intentional self-harm by other specified means, initial encounter; Z62.810 Personal history of physical and sexual abuse in childhood; Z62.811 Personal history of psychological abuse in childhood; Z79.899 Other long term (current) drug therapy; Z91.51 Personal history of suicidal behavior; K12.0 Recurrent oral aphthae; Y99.8 Other external cause status; Y92.230 Patient room in hospital as the place of occurrence of the external cause